=== PATIENT | female | born 1945 | race American Indian/Alaskan Native ===

== ENCOUNTER 2016-12-31 14:00 | Inpatient (IN) | payer MEDICARE ==
[~2016-12-31] VITALS: Ht 157.5 cm; Wt 130.8 kg
[2016-12-31] MEDS ORDERED: DIAZ2TAB3 PO (16:48)
[2016-12-31] MEDS ORDERED: FURO20TA3 PO (16:48)
[2016-12-31] MEDS ORDERED: DIPH25CA61 PO (16:48)
[2016-12-31] MEDS ORDERED: WARF1TAB7 PO (16:48)
[2016-12-31] MEDS ORDERED: HYDR-3144 PO ×2 (16:48→20:35)
[2016-12-31] MEDS ORDERED: DIGO125T PO (16:48)
[2016-12-31 17:59] VITALS: BP 163/86
[2016-12-31 19:06] VITALS: BP 158/82
[2016-12-31] MEDS ORDERED: LABETALOL 5MG/ML, 20ML IVPush PRN (20:00)
[2016-12-31] MEDS ORDERED: TEMAZEPAM 15 MG CAPSULE PO PRN (20:00)
[2016-12-31] MEDS ORDERED: ACETAMINOPHEN 325 MG TABLET PO PRN (20:00)
[2016-12-31] MEDS ORDERED: HYDROcodone/APAP 10/325 MG TABLET PO SCH (20:00)
[2016-12-31] MEDS ORDERED: SOTA80TA PO (20:28)
[2016-12-31] MEDS ORDERED: DIAZ5TAB4 PO (20:33)
[2016-12-31] MEDS: D5%-0.45% NACL 1,000 ML IV SCH (21:37)
[2016-12-31] MEDS: DIGOXIN 0.125 MG TABLET PO SCH (21:42)
[2016-12-31] MEDS: HYDROcodone/APAP 10/325 MG TABLET PO PRN (22:14)
[2016-12-31] MEDS: SOTALOL 80MG TABLET PO SCH (22:14)
[2016-12-31] MEDS: DIAZEPAM 5 MG TABLET PO PRN (23:33)
[2017-01-01 01:16] VITALS: BP 149/78
[2017-01-01 05:23] LABS: BLOOD UREA NITROGEN 21 mg/dL (7-18)
[2017-01-01 06:52] VITALS: BP 112/74
[2017-01-01] MEDS ORDERED: DIAZEPAM 2 MG TABLET PO SCH (09:00)
[2017-01-01] MEDS ORDERED: DIGOXIN 0.125 MG TABLET PO SCH (09:00)
[2017-01-01] MEDS: D5%-0.45% NACL 1,000 ML IV SCH ×2 (09:28→23:22)
[2017-01-01] MEDS: SOTALOL 80MG TABLET PO SCH ×2 (09:31→21:23)
[2017-01-01] MEDS: FUROSEMIDE 20 MG TABLET PO SCH (09:31)
[2017-01-01] MEDS ORDERED: morphine SULFATE 10 MG/ML, 1ML IVPush PRN (11:30)
[2017-01-01 12:12] VITALS: BP 138/83
[2017-01-01] MEDS: DIAZEPAM 5 MG TABLET PO PRN ×2 (13:40→23:20)
[2017-01-01] MEDS: DIGOXIN 0.125 MG TABLET PO SCH (18:36)
[2017-01-01 19:18] VITALS: BP 162/81
[2017-01-01] MEDS: HYDROcodone/APAP 10/325 MG TABLET PO PRN (21:23)
[2017-01-02 01:55] VITALS: BP 150/76
[2017-01-02 06:53] VITALS: BP 144/82
[2017-01-02] MEDS: DIGOXIN 0.125 MG TABLET PO SCH (09:00)
[2017-01-02] MEDS: FUROSEMIDE 20 MG TABLET PO SCH (09:00)
[2017-01-02] MEDS: DIAZEPAM 5 MG TABLET PO PRN (09:32)
[2017-01-02] MEDS: HYDROcodone/APAP 10/325 MG TABLET PO PRN (09:32)
[2017-01-02] MEDS: SOTALOL 80MG TABLET PO SCH (09:33)
[2017-01-02] MEDS: D5%-0.45% NACL 1,000 ML IV SCH (11:47)
== END 2017-01-02 13:33 | disposition home or self-care (01) | DRG 760 ==
LOC: ED 16:20 → EDIP 16:53 → 3NE 17:59
PROVIDERS: ADMIT Hospitalist; ATTEND Hospitalist
DX: N93.8 Other specified abnormal uterine and vaginal bleeding (principal); D68.69 Other thrombophilia; E66.2 Morbid (severe) obesity with alveolar hypoventilation; F11.20 Opioid dependence, uncomplicated; I48.1 Persistent atrial fibrillation; D68.32 Hemorrhagic disorder due to extrinsic circulating anticoagulants; G25.81 Restless legs syndrome; G89.29 Other chronic pain; I11.0 Hypertensive heart disease with heart failure; I50.9 Heart failure, unspecified; M19.90 Unspecified osteoarthritis, unspecified site; M54.9 Dorsalgia, unspecified; J44.9 Chronic obstructive pulmonary disease, unspecified; K21.9 Gastro-esophageal reflux disease without esophagitis; T45.515A Adverse effect of anticoagulants, initial encounter; Y92.89 Other specified places as the place of occurrence of the external cause; Z79.01 Long term (current) use of anticoagulants; Z86.718 Personal history of other venous thrombosis and embolism; Z99.81 Dependence on supplemental oxygen; Z88.1 Allergy status to other antibiotic agents; Z91.030 Bee allergy status; C54.1 Malignant neoplasm of endometrium
CPT/HCPCS: 36415; 80048; 80162; 82962; 85025; 85610; J2270

== ENCOUNTER 2017-02-14 11:41 | Emergency (ER) | payer MEDICARE ==
[~2017-02-14] VITALS: Ht 160 cm; Wt 129.8 kg
[~2017-02-14 11:41] MED LIST: DIAZ2TAB3 PO; DIAZ5TAB4 PO; DIGO125T PO; DIPH25CA61 PO; FURO20TA3 PO; HYDR-3144 PO; SOTA80TA PO; WARF1TAB7 PO
[2017-02-14] MEDS ORDERED: SODIUM CHLORIDE FLUSH 10ML SYR IVF ONE (12:30)
[2017-02-14 13:11] VITALS: BP 134/58
== END 2017-02-14 14:00 | disposition home or self-care (01) ==
LOC: ED 13:40
DX: S76.911A Strain of unspecified muscles, fascia and tendons at thigh level, right thigh, initial encounter (principal); J44.9 Chronic obstructive pulmonary disease, unspecified; K21.9 Gastro-esophageal reflux disease without esophagitis; I48.91 Unspecified atrial fibrillation; I50.9 Heart failure, unspecified; W19.XXXA Unspecified fall, initial encounter; Y93.89 Activity, other specified; Y92.009 Unspecified place in unspecified non-institutional (private) residence as the place of occurrence of the external cause; Y99.9 Unspecified external cause status
CPT/HCPCS: 36415; 85025; 85610; 99285

== ENCOUNTER 2018-07-01 12:54 | Inpatient (IN) | payer MEDICARE ==
[~2018-07-01] VITALS: Ht 154.9 cm; Wt 151.9 kg
[~2018-07-01 12:54] MED LIST changes: -HYDR-3144 PO; +HYDR-3245 PO; -WARF1TAB7 PO; +WARF1TAB74 PO
[2018-07-01] MEDS ORDERED: DIAZEPAM 5 MG/ML, 2ML IVPush ONE (13:30)
[2018-07-01] MEDS ORDERED: SODIUM CHLORIDE FLUSH 10ML SYR IVF ONE (13:30)
[2018-07-01 13:54] LABS: BASOPHILS # (AUTO) 0.02 x10^3/uL (0-0.1); BASOPHILS % (AUTO) 0 % (0-1); EOSINOPHILS # (AUTO) 0.07 x10^3/uL (0-0.4); EOSINOPHILS % (AUTO) 1 % (1-7); LYMPHOCYTES # (AUTO) 0.75 x10^3/uL (1-3.4); LYMPHOCYTES % (AUTO) 6 % (22-44); MD NO; MEAN CORPUSCULAR HEMOGLOBIN 29.9 pg (27.0-34.8); MEAN CORPUSCULAR HGB CONC 33.4 g/dL (32.4-35.8); MEAN CORPUSCULAR VOLUME 89.4 fL (80-100); MEAN PLATELET VOLUME 8.1 fL (7.4-10.4); MONOCYTES # (AUTO) 0.68 x10^3/uL (0.2-0.8); MONOCYTES % (AUTO) 5 % (2-9); NEUTROPHILS # (AUTO) 11.27 x10^3/uL (1.8-6.8); NEUTROPHILS % (AUTO) 88 % (42-75); PLATELET COUNT 187 x10^3/uL (130-400); RED BLOOD COUNT 5.29 x10^6/uL (3.82-5.3)
[2018-07-01 13:58] LABS: INTERNATIONAL NORMALIZED RATIO 2.13 (0.93-1.1); PROTHROMBIN TIME 21.9 Seconds (9.6-11.5)
[2018-07-01 14:03] LABS: ALANINE AMINOTRANSFERASE 20 U/L (12-78); ALBUMIN 3.7 g/dL (3.4-5.0); ANION GAP 7 mmol/L (5-15); CHLORIDE 105 mmol/L (98-107); CREATININE 1.13 mg/dL (0.55-1.02)
[2018-07-01] MEDS ORDERED: WARF3TAB PO (14:09)
[2018-07-01 14:13] LABS: ALKALINE PHOSPHATASE 93 U/L (45-117); BILIRUBIN,TOTAL 0.9 mg/dL (0.2-1.0); TOTAL PROTEIN 7.7 g/dL (6.4-8.2)
[2018-07-01] MEDS ORDERED: ALBUTEROL/IPRATROPIUM 2.5MG/0.5MG, 3 ML ONE (14:25)
[2018-07-01] MEDS ORDERED: DILTIAZEM 5 MG/ML, 5ML IV ONE (14:30)
[2018-07-01] MEDS ORDERED: FUROSEMIDE 40 MG/4 ML IV ONE (14:30)
[2018-07-01] MEDS ORDERED: CEFTRIAXONE PMX 1GM/50ML 50 ML IV ONE (14:30)
[2018-07-01] MEDS ORDERED: DOXYCYCLINE 100 MG in DEXTROSE 5% 250 ML IV ONE (14:30)
[2018-07-01] MEDS ORDERED: MAGNESIUM SULFATE PMX 2GM/50ML 50 ML IV ONE (14:30)
[2018-07-01] MEDS ORDERED: ACETAMINOPHEN 500 MG TABLET PO ONE (14:30)
[2018-07-01 14:39] LABS: TROPONIN I < 0.015 ng/mL (0.000-0.045)
[2018-07-01] MEDS ORDERED: FUROSEMIDE 40 MG/4 ML ONE (14:54)
[2018-07-01] MEDS ORDERED: CEFTRIAXONE PMX 1GM/50ML 50 ML ONE (14:54)
[2018-07-01] MEDS ORDERED: DILTIAZEM 5 MG/ML, 5ML ONE (14:55)
[2018-07-01] MEDS ORDERED: ACETAMINOPHEN 500 MG TABLET ONE (14:55)
[2018-07-01 15:13] LABS: RAPID INFLUENZA A Negative (Negative); RAPID INFLUENZA B Negative (Negative)
[2018-07-01] MEDS ORDERED: SODIUM CHLORIDE 0.9% 1,000 ML IV SCH (15:54)
[2018-07-01] MEDS ORDERED: POLYETHYLENE GLYCOL 17 GM PACKET PO PRN (16:00)
[2018-07-01] MEDS ORDERED: ACETAMINOPHEN 325 MG TABLET PO PRN (16:00)
[2018-07-01] MEDS ORDERED: GUAIFENESIN/DM 200-20MG, 10ML UDC PO PRN (16:00)
[2018-07-01] MEDS ORDERED: ONDANSETRON 2MG/ML, 2ML IVPush PRN (16:00)
[2018-07-01] MEDS: CEFTRIAXONE PMX 1GM/50ML 50 ML IV SCH (17:02)
[2018-07-01 17:52] VITALS: BP 91/57
[2018-07-01] MEDS ORDERED: WARFARIN 3 MG TABLET PO-COUM ONE (18:00)
[2018-07-01] MEDS: HYDROcodone/APAP 10/325 MG TABLET PO PRN (18:01)
[2018-07-01 19:13] VITALS: BP 121/68
[2018-07-01] MEDS ORDERED: MAGNESIUM SULFATE 4 GM in SODIUM CHLORIDE 0.9% 100 ML IV ONE (19:30)
[2018-07-01] MEDS: SODIUM CHLORIDE 0.9% 1,000 ML IV SCH (20:30)
[2018-07-01] MEDS ORDERED: TEMPLATE NON-FORMULARY MED. (Warfarin Sodium** (Coumadin**) 3 MG) PO SCH (21:00)
[2018-07-01] MEDS: DOXYCYCLINE 100MG TABLET PO SCH (21:30)
[2018-07-01 23:19] LABS: MICROSCOPIC NOT IND
[2018-07-01 23:21] LABS: CULTURE INDICATED? NO
[2018-07-01 23:34] LABS: TROPONIN I < 0.015 ng/mL (0.000-0.045)
[2018-07-02 01:16] VITALS: BP 105/70
[2018-07-02] MEDS: HYDROcodone/APAP 10/325 MG TABLET PO PRN ×3 (01:19→21:02)
[2018-07-02 05:13] LABS: BASOPHILS # (AUTO) 0.02 x10^3/uL (0-0.1); BASOPHILS % (AUTO) 0 % (0-1); EOSINOPHILS # (AUTO) 0.09 x10^3/uL (0-0.4); EOSINOPHILS % (AUTO) 1 % (1-7); LYMPHOCYTES # (AUTO) 1.03 x10^3/uL (1-3.4); LYMPHOCYTES % (AUTO) 8 % (22-44); MD NO; MEAN CORPUSCULAR HEMOGLOBIN 29.6 pg (27.0-34.8); MEAN CORPUSCULAR HGB CONC 33.1 g/dL (32.4-35.8); MEAN CORPUSCULAR VOLUME 89.5 fL (80-100); MEAN PLATELET VOLUME 8.6 fL (7.4-10.4); MONOCYTES # (AUTO) 0.95 x10^3/uL (0.2-0.8); MONOCYTES % (AUTO) 8 % (2-9); NEUTROPHILS # (AUTO) 10.31 x10^3/uL (1.8-6.8); NEUTROPHILS % (AUTO) 83 % (42-75); PLATELET COUNT 158 x10^3/uL (130-400); RED BLOOD COUNT 4.49 x10^6/uL (3.82-5.3); RED CELL DISTRIBUTION WIDTH 15.1 % (9.6-15.2)
[2018-07-02 05:22] LABS: CALCIUM 8.3 mg/dL (8.5-10.1); CHLORIDE 106 mmol/L (98-107)
[2018-07-02 05:30] LABS: ALANINE AMINOTRANSFERASE 15 U/L (12-78); ALBUMIN 2.9 g/dL (3.4-5.0); ALKALINE PHOSPHATASE 68 U/L (45-117); ANION GAP 9 mmol/L (5-15); BILIRUBIN,TOTAL 1.2 mg/dL (0.2-1.0); CREATININE 1.11 mg/dL (0.55-1.02); TOTAL PROTEIN 6.1 g/dL (6.4-8.2); TROPONIN I < 0.015 ng/mL (0.000-0.045)
[2018-07-02] MEDS: SODIUM CHLORIDE 0.9% 1,000 ML IV SCH (06:30)
[2018-07-02 07:23] VITALS: BP 95/63
[2018-07-02] MEDS: DOXYCYCLINE 100MG TABLET PO SCH ×2 (08:14→21:02)
[2018-07-02] MEDS: FUROSEMIDE 40 MG TABLET PO SCH (08:15)
[2018-07-02 13:16] VITALS: BP 116/71
[2018-07-02 15:18] LABS: INTERNATIONAL NORMALIZED RATIO 2.35 (0.93-1.1); PROTHROMBIN TIME 24.1 Seconds (9.6-11.5)
[2018-07-02] MEDS ORDERED: SODIUM CHLORIDE 0.9% 1,000 ML IV SCH (15:54)
[2018-07-02] MEDS: CEFTRIAXONE PMX 1GM/50ML 50 ML IV SCH (16:12)
[2018-07-02] MEDS ORDERED: WARFARIN 2.5 MG TABLET PO-COUM ONE (18:00)
[2018-07-02 19:35] VITALS: BP 147/77
[2018-07-02] MEDS: DIAZEPAM 5 MG TABLET PO PRN (21:02)
[2018-07-03 02:03] VITALS: BP 125/81
[2018-07-03 05:49] LABS: INTERNATIONAL NORMALIZED RATIO 2.35 (0.93-1.1); PROTHROMBIN TIME 24.1 Seconds (9.6-11.5)
[2018-07-03 07:08] VITALS: BP 127/79
[2018-07-03] MEDS: FUROSEMIDE 40 MG TABLET PO SCH (08:51)
[2018-07-03] MEDS: DOXYCYCLINE 100MG TABLET PO SCH ×2 (08:51→20:17)
[2018-07-03] MEDS ORDERED: DIAZEPAM 2 MG TABLET ONE (08:55)
[2018-07-03] MEDS: HYDROcodone/APAP 10/325 MG TABLET PO PRN ×2 (08:57→20:33)
[2018-07-03] MEDS: DIAZEPAM 5 MG TABLET PO PRN ×2 (08:57→20:33)
[2018-07-03 14:18] VITALS: BP 124/73
[2018-07-03] MEDS: CEFTRIAXONE PMX 1GM/50ML 50 ML IV SCH (16:06)
[2018-07-03] MEDS ORDERED: WARFARIN 3 MG TABLET PO-COUM ONE (18:00)
[2018-07-03 18:46] VITALS: BP 122/63
[2018-07-04 01:02] VITALS: BP 139/78
[2018-07-04 06:14] LABS: INTERNATIONAL NORMALIZED RATIO 2.25 (0.93-1.1); PROTHROMBIN TIME 23.1 Seconds (9.6-11.5)
[2018-07-04 07:29] VITALS: BP 129/86
[2018-07-04] MEDS: FUROSEMIDE 40 MG TABLET PO SCH (09:30)
[2018-07-04] MEDS: HYDROcodone/APAP 10/325 MG TABLET PO PRN ×2 (09:30→15:47)
[2018-07-04] MEDS: DOXYCYCLINE 100MG TABLET PO SCH ×2 (09:30→21:58)
[2018-07-04 13:40] VITALS: BP 118/84
[2018-07-04] MEDS: CEFTRIAXONE PMX 1GM/50ML 50 ML IV SCH (15:47)
[2018-07-04] MEDS ORDERED: DIAZEPAM 2 MG TABLET ONE (15:52)
[2018-07-04] MEDS: DIAZEPAM 5 MG TABLET PO PRN (15:53)
[2018-07-04] MEDS ORDERED: WARFARIN 3 MG TABLET PO-COUM SCH (18:00)
[2018-07-04 19:01] VITALS: BP 117/78
[2018-07-05 00:07] VITALS: BP 120/76
[2018-07-05] MEDS ORDERED: DIAZEPAM 2 MG TABLET ONE (05:32)
[2018-07-05] MEDS: DIAZEPAM 5 MG TABLET PO PRN (05:36)
[2018-07-05 06:16] LABS: INTERNATIONAL NORMALIZED RATIO 2.24 (0.93-1.1)
[2018-07-05 06:23] LABS: BASOPHILS # (AUTO) 0.03 x10^3/uL (0-0.1); BASOPHILS % (AUTO) 0 % (0-1); EOSINOPHILS # (AUTO) 0.38 x10^3/uL (0-0.4); EOSINOPHILS % (AUTO) 5 % (1-7); LYMPHOCYTES # (AUTO) 1.32 x10^3/uL (1-3.4); LYMPHOCYTES % (AUTO) 18 % (22-44); MD NO; MEAN CORPUSCULAR HGB CONC 33.5 g/dL (32.4-35.8); MEAN CORPUSCULAR VOLUME 89.7 fL (80-100); MEAN PLATELET VOLUME 8.1 fL (7.4-10.4); MONOCYTES # (AUTO) 0.84 x10^3/uL (0.2-0.8); MONOCYTES % (AUTO) 12 % (2-9); NEUTROPHILS # (AUTO) 4.69 x10^3/uL (1.8-6.8); NEUTROPHILS % (AUTO) 65 % (42-75); PLATELET COUNT 198 x10^3/uL (130-400); RED BLOOD COUNT 5.05 x10^6/uL (3.82-5.3); RED CELL DISTRIBUTION WIDTH 14.7 % (9.6-15.2)
[2018-07-05 06:24] LABS: ALBUMIN 2.9 g/dL (3.4-5.0); ANION GAP 10 mmol/L (5-15); CALCIUM 9.1 mg/dL (8.5-10.1); CHLORIDE 101 mmol/L (98-107)
[2018-07-05 07:03] VITALS: BP 124/73
[2018-07-05] MEDS: DOXYCYCLINE 100MG TABLET PO SCH (09:17)
[2018-07-05] MEDS: FUROSEMIDE 40 MG TABLET PO SCH (09:18)
[2018-07-05] MEDS: HYDROcodone/APAP 10/325 MG TABLET PO PRN (09:25)
[2018-07-05] MEDS ORDERED: DOXY100T PO (11:42)
[2018-07-05] MEDS ORDERED: CEFD300C37 PO (11:42)
[2018-07-05 13:01] VITALS: BP 100/62
[2018-07-05] MEDS ORDERED: WARFARIN 3 MG TABLET PO-COUM SCH (18:00)
== END 2018-07-05 18:05 | disposition home health service (06) | DRG 871 ==
LOC: ED 13:39 → EDIP 14:46 → SUATTDRO 15:53 → 4EST 17:26
PROVIDERS: ADMIT Family Medicine; ATTEND Family Medicine
PROC: 0T9B70Z Drainage of Bladder with Drainage Device, Via Natural or Artificial Opening (ICD-10-PCS; principal; 2018-07-01)
PROC: 5A09357 Assistance with Respiratory Ventilation, Less than 24 Consecutive Hours, Continuous Positive Airway Pressure (ICD-10-PCS; 2018-07-02)
PROC: 5A09357 Assistance with Respiratory Ventilation, Less than 24 Consecutive Hours, Continuous Positive Airway Pressure (ICD-10-PCS; 2018-07-03)
PROC: 5A09357 Assistance with Respiratory Ventilation, Less than 24 Consecutive Hours, Continuous Positive Airway Pressure (ICD-10-PCS; 2018-07-05)
DX: A41.9 Sepsis, unspecified organism (principal); J96.21 Acute and chronic respiratory failure with hypoxia; J18.1 Lobar pneumonia, unspecified organism; D68.69 Other thrombophilia; E66.2 Morbid (severe) obesity with alveolar hypoventilation; J44.0 Chronic obstructive pulmonary disease with (acute) lower respiratory infection; Z68.44 Body mass index [BMI] 60.0-69.9, adult; F41.9 Anxiety disorder, unspecified; M19.90 Unspecified osteoarthritis, unspecified site; G89.29 Other chronic pain; I11.0 Hypertensive heart disease with heart failure; I48.2 Chronic atrial fibrillation; I50.9 Heart failure, unspecified; K21.9 Gastro-esophageal reflux disease without esophagitis; Z79.01 Long term (current) use of anticoagulants; Z86.718 Personal history of other venous thrombosis and embolism; Z99.81 Dependence on supplemental oxygen; Z88.1 Allergy status to other antibiotic agents; Z88.8 Allergy status to other drugs, medicaments and biological substances
CPT/HCPCS: 36415; 36600; 71045; 80048; 80053; 81003; 82040; 82803; 83605; 83735; 83880; 84100; 84145; 84443; 84484; 85025; 85610; 87040; 87400; 93005; 93306; 94640; 96365; 96375; 99291; G0378; J0696; J1940; J3360; J3475; J7060; J7030

== ENCOUNTER 2018-09-01 00:20 | Inpatient (IN) | payer MEDICARE ==
[~2018-09-01] VITALS: Ht 157.5 cm; Wt 132.7 kg
[~2018-09-01 00:20] MED LIST changes: +CEFD300C37 PO; +DOXY100T PO; +WARF3TAB PO
--- NOTE | 2018-09-01 00:34 | NUR ---
BIB [facility] W/ CO WORSENING UTI. +FEVER 101 AT HOME. TAKING AMOXICILLIN FOR UTI. BP/SPO2 MONITOR IN PLACE.
[2018-09-01] MEDS ORDERED: ACETAMINOPHEN 500 MG TABLET PO ONE (01:00)
[2018-09-01] MEDS ORDERED: VANCOMYCIN PER PHARMACY IV ONE (01:00)
[2018-09-01 01:05] LABS: BASOPHILS % (AUTO) 0 % (0-1); EOSINOPHILS # (AUTO) 0.16 x10^3/uL (0-0.4); EOSINOPHILS % (AUTO) 2 % (1-7); LYMPHOCYTES # (AUTO) 0.66 x10^3/uL (1-3.4); LYMPHOCYTES % (AUTO) 6 % (22-44); MD NO; MEAN CORPUSCULAR HEMOGLOBIN 29.9 pg (27.0-34.8); MEAN CORPUSCULAR HGB CONC 33.3 g/dL (32.4-35.8); MEAN CORPUSCULAR VOLUME 89.6 fL (80-100); MONOCYTES # (AUTO) 0.95 x10^3/uL (0.2-0.8); MONOCYTES % (AUTO) 9 % (2-9); NEUTROPHILS # (AUTO) 8.93 x10^3/uL (1.8-6.8); NEUTROPHILS % (AUTO) 83 % (42-75); PLATELET COUNT 180 x10^3/uL (130-400); RED BLOOD COUNT 4.91 x10^6/uL (3.82-5.3); RED CELL DISTRIBUTION WIDTH 16.3 % (9.6-15.2)
--- NOTE | 2018-09-01 01:08 | NUR ---
REPORT OF PT FROM WAN SINGH AND ASSUMING CARE OF PT.
[2018-09-01 01:16] LABS: ALBUMIN 3.1 g/dL (3.4-5.0); ANION GAP 6 mmol/L (5-15); CALCIUM 8.7 mg/dL (8.5-10.1); CHLORIDE 108 mmol/L (98-107); CREATININE 1.14 mg/dL (0.55-1.02)
[2018-09-01 01:20] LABS: TROPONIN I < 0.015 ng/mL (0.000-0.045)
[2018-09-01 01:21] LABS: RAPID INFLUENZA A Negative (Negative); RAPID INFLUENZA B Negative (Negative)
[2018-09-01] MEDS ORDERED: CEFTRIAXONE PMX 1GM/50ML 50 ML IV ONE (01:30)
[2018-09-01] MEDS ORDERED: VANCOMYCIN 2,000 MG in SODIUM CHLORIDE 0.9% 500 ML IV ONE (02:00)
--- NOTE | 2018-09-01 02:04 | NUR ---
PT ASSISTED TO BS COMMODE TO VOID. FAMILY ESCORTED OUT OF ROOM
[2018-09-01] MEDS ORDERED: CEFTRIAXONE PMX 1GM/50ML 50 ML ONE (02:15)
--- NOTE | 2018-09-01 02:18 | NUR ---
TASK RN: ZARA INITIATED. BC X2 DRAWN PRIOR Addendum: 09/01/18 at 0242 by LWEGENER SPO2/ECG/BP MONITORING IN PLACE. AFIB RATE, 90-115 ON MONITOR. PT REPORTS "LIVES IN AFIB", TAKES COUMADIN.
--- NOTE | 2018-09-01 02:23 | NUR ---
PT URINE COLLECTED AND TUBED TO LAB.
[2018-09-01 02:32] LABS: CULTURE INDICATED? YES; MICROSCOPIC INDICATED
[2018-09-01] MEDS ORDERED: HYDROcodone/APAP 5/325 TABLET ONE (02:51)
[2018-09-01] MEDS ORDERED: HYDROcodone/APAP 5/325 TABLET PO ONE (03:00)
--- NOTE | 2018-09-01 03:04 | NUR ---
REPORT OF PT TO WAN HEBERT. ALL QUESTIONS ANSWERED. PT AND FAMILY EDUCATED ON ROOM ASSIGMENT AND VERBALIZE UNDERSTANDING.
[2018-09-01 03:38] VITALS: BP 149/93
[2018-09-01] MEDS ORDERED: ONDANSETRON 2MG/ML, 2ML IVPush PRN (04:00)
[2018-09-01] MEDS ORDERED: ACETAMINOPHEN 325 MG TABLET PO PRN (04:00)
[2018-09-01] MEDS ORDERED: morphine SULFATE 10 MG/ML, 1ML IVPush PRN (04:00)
[2018-09-01] MEDS ORDERED: hydrALAzine 20 MG/ML, 1ML IVPush PRN (04:00)
[2018-09-01 04:16] LABS: INTERNATIONAL NORMALIZED RATIO 2.76 (0.93-1.1); PROTHROMBIN TIME 28.1 Seconds (9.6-11.5)
[2018-09-01] MEDS: SODIUM CHLORIDE 0.9% 1,000 ML IV SCH ×2 (05:47→20:55)
[2018-09-01 07:44] VITALS: BP 122/70
[2018-09-01] MEDS: POLYETHYLENE GLYCOL 17 GM PACKET PO SCH (07:46)
[2018-09-01] MEDS: FUROSEMIDE 20 MG TABLET PO SCH (08:08)
[2018-09-01] MEDS: HYDROcodone/APAP 10/325 MG TABLET PO PRN ×2 (08:08→17:54)
[2018-09-01] MEDS ORDERED: VANCOMYCIN PER PHARMACY MC PRN (11:00)
[2018-09-01] MEDS ORDERED: PHARMACOKINETIC CONSULTATION MC ONE (11:30)
[2018-09-01] MEDS ORDERED: PHARMACOKINETIC MONITORING MC PRN (11:30)
[2018-09-01 13:43] VITALS: BP 125/76
[2018-09-01] MEDS: DIAZEPAM 5 MG TABLET PO PRN (13:47)
[2018-09-01] MEDS ORDERED: WARFARIN 2.5 MG TABLET PO-COUM SCH (18:00)
[2018-09-01 19:48] VITALS: BP 143/72
[2018-09-01] MEDS ORDERED: TEMPLATE NON-FORMULARY MED. (Warfarin Sodium** (Coumadin**) 3 MG) PO SCH (21:00)
[2018-09-02 00:46] VITALS: BP 139/82
[2018-09-02] MEDS: HYDROcodone/APAP 10/325 MG TABLET PO PRN (01:18)
[2018-09-02] MEDS: CEFTRIAXONE PMX 1GM/50ML 50 ML IV SCH (01:35)
[2018-09-02] MEDS: VANCOMYCIN 2,000 MG in SODIUM CHLORIDE 0.9% 500 ML IV SCH (03:32)
[2018-09-02 05:13] LABS: INTERNATIONAL NORMALIZED RATIO 1.85 (0.93-1.1); PROTHROMBIN TIME 19.2 Seconds (9.6-11.5)
[2018-09-02 05:14] LABS: ANION GAP 6 mmol/L (5-15); CALCIUM 8.6 mg/dL (8.5-10.1); CHLORIDE 108 mmol/L (98-107)
[2018-09-02 05:16] LABS: CREATININE 0.99 mg/dL (0.55-1.02)
[2018-09-02 05:17] LABS: BASOPHILS # (AUTO) 0.02 x10^3/uL (0-0.1); BASOPHILS % (AUTO) 0 % (0-1); EOSINOPHILS # (AUTO) 0.31 x10^3/uL (0-0.4); EOSINOPHILS % (AUTO) 4 % (1-7); LYMPHOCYTES # (AUTO) 1.21 x10^3/uL (1-3.4); LYMPHOCYTES % (AUTO) 16 % (22-44); MD NO; MEAN CORPUSCULAR HEMOGLOBIN 30.2 pg (27.0-34.8); MEAN CORPUSCULAR HGB CONC 33.5 g/dL (32.4-35.8); MEAN CORPUSCULAR VOLUME 90.2 fL (80-100); MEAN PLATELET VOLUME 9.4 fL (7.4-10.4); MONOCYTES # (AUTO) 0.94 x10^3/uL (0.2-0.8); MONOCYTES % (AUTO) 12 % (2-9); NEUTROPHILS # (AUTO) 5.11 x10^3/uL (1.8-6.8); NEUTROPHILS % (AUTO) 67 % (42-75); PLATELET COUNT 156 x10^3/uL (130-400); RED BLOOD COUNT 4.52 x10^6/uL (3.82-5.3); RED CELL DISTRIBUTION WIDTH 16.8 % (9.6-15.2)
[2018-09-02 06:56] VITALS: BP 132/84
[2018-09-02] MEDS: POLYETHYLENE GLYCOL 17 GM PACKET PO SCH ×2 (09:00→09:46)
[2018-09-02] MEDS: FUROSEMIDE 20 MG TABLET PO SCH (09:46)
[2018-09-02 14:30] VITALS: BP 134/85
[2018-09-02 17:01] LABS: MICROSCOPIC INDICATED
[2018-09-02 17:02] LABS: CULTURE INDICATED? NO
[2018-09-02] MEDS ORDERED: WARFARIN 2 MG TABLET PO-COUM ONE (18:00)
[2018-09-02 18:47] VITALS: BP 154/87
[2018-09-03] MEDS: CEFTRIAXONE PMX 1GM/50ML 50 ML IV SCH (02:17)
[2018-09-03 02:45] VITALS: BP 145/83
[2018-09-03] MEDS: DIAZEPAM 5 MG TABLET PO PRN (03:21)
[2018-09-03] MEDS: VANCOMYCIN 2,000 MG in SODIUM CHLORIDE 0.9% 500 ML IV SCH (03:24)
[2018-09-03] MEDS: HYDROcodone/APAP 10/325 MG TABLET PO PRN (04:35)
[2018-09-03 04:58] LABS: INTERNATIONAL NORMALIZED RATIO 1.87 (0.93-1.1); PROTHROMBIN TIME 19.4 Seconds (9.6-11.5)
[2018-09-03 06:56] VITALS: BP 131/77
[2018-09-03] MEDS: FUROSEMIDE 20 MG TABLET PO SCH (09:00)
[2018-09-03] MEDS: POLYETHYLENE GLYCOL 17 GM PACKET PO SCH (09:00)
[2018-09-03 13:46] VITALS: BP 138/86
[2018-09-03] MEDS ORDERED: CEFD300C37 PO (14:49)
[2018-09-03] MEDS ORDERED: DOXY100T PO (14:49)
[2018-09-03] MEDS ORDERED: WARFARIN 5 MG TABLET PO-COUM ONE (18:00)
== END 2018-09-03 16:45 | disposition home or self-care (01) | DRG 871 ==
LOC: ED 01:03 → EDIP 02:44 → 3NW 03:24 → DCLOUNGE 09-03 16:35
PROVIDERS: ADMIT Hospitalist; ATTEND Hospitalist
DX: A41.9 Sepsis, unspecified organism (principal); J96.21 Acute and chronic respiratory failure with hypoxia; L03.115 Cellulitis of right lower limb; Z68.43 Body mass index [BMI] 50.0-59.9, adult; D68.69 Other thrombophilia; N39.0 Urinary tract infection, site not specified; E66.01 Morbid (severe) obesity due to excess calories; G47.33 Obstructive sleep apnea (adult) (pediatric); I11.0 Hypertensive heart disease with heart failure; I48.2 Chronic atrial fibrillation; I50.9 Heart failure, unspecified; J44.9 Chronic obstructive pulmonary disease, unspecified; K21.9 Gastro-esophageal reflux disease without esophagitis; Z79.01 Long term (current) use of anticoagulants; Z86.718 Personal history of other venous thrombosis and embolism; Z87.440 Personal history of urinary (tract) infections; Z88.0 Allergy status to penicillin; Z99.81 Dependence on supplemental oxygen; M19.90 Unspecified osteoarthritis, unspecified site; Z88.1 Allergy status to other antibiotic agents; Z91.048 Other nonmedicinal substance allergy status
CPT/HCPCS: 36415; 71045; 80048; 81001; 82040; 83605; 83735; 83880; 84100; 84484; 85025; 85610; 87040; 87086; 87400; 93005; 94660; 96365; G0378; J0696; J3370; J7030; J7040

== ENCOUNTER 2019-06-20 13:27 | Emergency (ER) | payer MEDICARE ==
[~2019-06-20] VITALS: Ht 162.6 cm; Wt 145.0 kg
[2019-06-20] MEDS ORDERED: SODIUM CHLORIDE FLUSH 10ML SYR IVF ONE (14:00)
--- NOTE | 2019-06-20 14:18 | NUR ---
PULP DRIER: PT TO ROOM FROM IMAGING VIA WHEELCHAIR AT THIS TIME. BREE
[2019-06-20 14:33] LABS: BASOPHILS % (AUTO) 0 % (0-1); EOSINOPHILS # (AUTO) 0.12 x10^3/uL (0-0.4); EOSINOPHILS % (AUTO) 1 % (1-7); LYMPHOCYTES # (AUTO) 1.23 x10^3/uL (1-3.4); LYMPHOCYTES % (AUTO) 9 % (22-44); MD NO; MEAN CORPUSCULAR HEMOGLOBIN 30.4 pg (27.0-34.8); MEAN CORPUSCULAR HGB CONC 32.6 g/dL (32.4-35.8); MEAN CORPUSCULAR VOLUME 93.3 fL (80-100); MEAN PLATELET VOLUME 8.6 fL (7.4-10.4); MONOCYTES # (AUTO) 1.12 x10^3/uL (0.2-0.8); MONOCYTES % (AUTO) 9 % (2-9); NEUTROPHILS # (AUTO) 10.64 x10^3/uL (1.8-6.8); NEUTROPHILS % (AUTO) 81 % (42-75); PLATELET COUNT 162 x10^3/uL (130-400); RED BLOOD COUNT 5.11 x10^6/uL (3.82-5.3); RED CELL DISTRIBUTION WIDTH 15.4 % (9.6-15.2)
[2019-06-20 14:34] LABS: ALANINE AMINOTRANSFERASE 18 U/L (12-78); ANION GAP 5 mmol/L (5-15); CALCIUM 8.8 mg/dL (8.5-10.1); CHLORIDE 112 mmol/L (98-107); CREATININE 1.26 mg/dL (0.55-1.02); INTERNATIONAL NORMALIZED RATIO 1.46 (0.93-1.1); PROTHROMBIN TIME 15.1 Seconds (9.6-11.5)
[2019-06-20 14:39] LABS: ALKALINE PHOSPHATASE 69 U/L (45-117); BILIRUBIN,TOTAL 1.4 mg/dL (0.2-1.0); TOTAL PROTEIN 7.4 g/dL (6.4-8.2); TROPONIN I < 0.015 ng/mL (0.000-0.045)
--- NOTE | 2019-06-20 14:50 | NUR ---
assumed care of pt at this time. pt c/o productive, bloody cough with fevers at home. ALL TESTS RESULTS ARE BACK AND CHART UP FOR MD RECHECK. PER DR. SALAZAR, PT TO BE ADMITTED. PT AWARE. PT ON MONITOR.
[2019-06-20 15:06] VITALS: BP 126/76
[2019-06-20] MEDS ORDERED: AMIO200T42 PO (15:06)
[2019-06-20] MEDS ORDERED: DIAZ2TAB3 PO (15:06)
[2019-06-20] MEDS ORDERED: TOPI25TA8 PO (15:06)
[2019-06-20] MEDS ORDERED: CHOL200024 PO (15:06)
[2019-06-20] MEDS ORDERED: LOSA25TA25 PO (15:06)
== END 2019-06-20 15:58 | disposition home or self-care (01) ==
LOC: ED 15:50
DX: J44.1 Chronic obstructive pulmonary disease with (acute) exacerbation (principal); I11.0 Hypertensive heart disease with heart failure; I50.42 Chronic combined systolic (congestive) and diastolic (congestive) heart failure; K21.9 Gastro-esophageal reflux disease without esophagitis; I48.91 Unspecified atrial fibrillation
CPT/HCPCS: 36415; 71045; 80053; 83880; 84484; 85025; 85610; 85730; 93005; 99284